=== PATIENT | female | born 1940 | race Caucasian/White ===

== ENCOUNTER 2022-09-24 06:55 | Day surgery (SDC) | payer MEDICARE, BC ==
[2022-09-19 09:39] LABS: BASOPHILS # (AUTO) 0.1 X10'3 (0-0.2); BASOPHILS % (AUTO) 0.8 % (0-1); EOSINOPHILS # (AUTO) 0.3 X10'3 (0-0.9); EOSINOPHILS % (AUTO) 3.6 % (0-6); HEMATOCRIT 38.2 % (35.0-45.0); LYMPHOCYTES # (AUTO) 2.1 X10'3 (1.1-4.8); MEAN CORPUSCULAR HEMOGLOBIN 30.5 PG (27.0-31.0); MEAN CORPUSCULAR HGB CONC 34.1 g/dL (33.0-36.5); MEAN CORPUSCULAR VOLUME 89.2 FL (78-98); MEAN PLATELET VOLUME 7.6 FL (7.4-10.4); MONOCYTES # (AUTO) 0.8 X10'3 (0-0.9); MONOCYTES % (AUTO) 9.5 % (2-12); NEUTROPHILS # (AUTO) 5.1 X10'3 (1.8-7.7); NEUTROPHILS % (AUTO) 61.1 % (42-75); PLATELET COUNT 298 X10'3 (140-440); RED BLOOD COUNT 4.28 X10'6 (4.20-5.60); RED CELL DISTRIBUTION WIDTH 13.2 % (11.5-14.5); WHITE BLOOD COUNT 8.4 X10'3 (4.5-11.0)
[2022-09-19 09:49] LABS: APTT 25 SECONDS (22-32)
[2022-09-19 09:53] LABS: ALANINE AMINOTRANSFERASE 21 U/L (12-78); ALBUMIN 3.1 G/DL (3.4-5.0); ALBUMIN/GLOBULIN RATIO 0.9 (1.1-1.5); ALKALINE PHOSPHATASE 76 IU/L (46-116); ANION GAP 9 (8-16); ASPARTATE AMINO TRANSFERASE 16 U/L (10-37); BILIRUBIN,TOTAL 0.3 MG/DL (0.1-1.0); BLOOD UREA NITROGEN 22 MG/DL (7-18); BUN/CREATININE RATIO 24.2 (10.0-20.0); CALCIUM 9.1 MG/DL (8.5-10.1); CHLORIDE 106 MMOL/L (99-107); CREATININE 0.91 MG/DL (0.40-0.90); GLUCOSE 109 MG/DL (70-104); POTASSIUM 3.9 MMOL/L (3.5-5.1); SODIUM 142 MMOL/L (135-145); TOTAL CARBON DIOXIDE 26.9 MMOL/L (24-32); TOTAL PROTEIN 6.7 G/DL (6.4-8.2); eGFR 59 ML/MIN
[2022-09-24] VITALS (13 sets, daily range): BP systolic 93–147; BP diastolic 47–93
[~2022-09-24] VITALS: Ht 157.5 cm; Wt 65.5 kg
[2022-09-24] MEDS ORDERED: LORazepam 0.5 MG tablet PO PRN (07:15)
[2022-09-24] MEDS ORDERED: nitroGLYCERIN 0.4mg SUBLingual tab SL PRN ×2 (07:15→11:50)
[2022-09-24] MEDS ORDERED: normal saline 1,000 ML IV SCH (07:15)
[2022-09-24] MEDS ORDERED: diphenhydrAMINE 25mg capsule PO PRN (07:15)
[2022-09-24] MEDS ORDERED: SIMV-45 PO (07:57)
[2022-09-24] MEDS ORDERED: CITA20TA26 PO (07:57)
[2022-09-24] MEDS ORDERED: ASPI81TA52 PO (07:57)
[2022-09-24] MEDS ORDERED: AMLO10TA13 PO (07:57)
[2022-09-24] MEDS ORDERED: MULT-1085 PO (07:58)
[2022-09-24] MEDS ORDERED: OSC500T PO (07:58)
[2022-09-24] MEDS ORDERED: LIDOcaine 1% 30ml preserv. free vial ONE (09:14)
[2022-09-24] MEDS ORDERED: fentaNYL/PF 50MCG/1 ML 2ML syringe ONE (09:14)
[2022-09-24] MEDS ORDERED: iohexol 350 MG/ML 50ML vial IV ONE ×2 (09:14→10:19)
[2022-09-24] MEDS ORDERED: midazolam 1 mg/ML 2ml injection ONE (09:14)
[2022-09-24] MEDS ORDERED: iohexol 350MG/ML 100ml bottle IV ONE (09:14)
[2022-09-24] MEDS ORDERED: nitroGLYCERIN-Tridil 50MG/D5W 250 ML IV ONE (10:23)
[2022-09-24] MEDS ORDERED: metoprolol tartrate 1mg/ml inj IV ONE (10:25)
[2022-09-24] MEDS ORDERED: amLODIPine 5mg tablet PO ONE (11:10)
[2022-09-24] MEDS ORDERED: ondansetron/PF 4mg/2ml inj IV PRN (11:45)
[2022-09-24] MEDS ORDERED: HYDROcodone/acetaminophen 10/325mg tab PO PRN (11:50)
[2022-09-24] MEDS ORDERED: proCHLORperazine 10 MG/2 ml inj IV PRN (11:50)
[2022-09-24] MEDS ORDERED: normal saline 1000ml 1,000 ML IV SCH (11:50)
[2022-09-24] MEDS ORDERED: HYDROcodone/acetaminophen 5mg/325mg tablet PO PRN (11:50)
[2022-09-24] MEDS ORDERED: OXAZEpam 15mg capsule PO PRN (11:50)
== END 2022-09-24 17:45 | disposition home or self-care (01) ==
LOC: SSTAY O 06:55
PROVIDERS: ATTEND Internal Medicine Cardiovascular Disease
DX: Z01.810 Encounter for preprocedural cardiovascular examination (principal); I25.10 Atherosclerotic heart disease of native coronary artery without angina pectoris; I10 Essential (primary) hypertension; E78.5 Hyperlipidemia, unspecified; F32.9 Major depressive disorder, single episode, unspecified; M17.0 Bilateral primary osteoarthritis of knee; M47.897 Other spondylosis, lumbosacral region; M54.30 Sciatica, unspecified side; M16.0 Bilateral primary osteoarthritis of hip; I65.23 Occlusion and stenosis of bilateral carotid arteries; Z79.899 Other long term (current) drug therapy; Z79.82 Long term (current) use of aspirin
CPT/HCPCS: 36415; 71046; 80053; 85025; 85610; 85730; 93458; 93567; 99152; 99153; J1644; J2250; J3010; J3490; J7030; Q0163; Q9967; A6258; C1760